=== PATIENT | male | born 1950 | race Caucasian/White ===

== ENCOUNTER → 2017-10-31 | Outpatient (CLI) | payer MEDICARE, OTHER ==
[~2017-10-31] MED LIST: HYDR2TAB58; LOSA50TA6 OR; OXYC15TA48; ZOLP10TA
== END | disposition home or self-care (01) ==
LOC: Rad HDHVI 15:00
PROVIDERS: ATTEND Internal Medicine Cardiovascular Disease
DX: I51.7 Cardiomegaly (principal)
CPT/HCPCS: 93306

== ENCOUNTER → 2017-11-19 | Outpatient (CLI) | payer MEDICARE, OTHER ==
[~2017-11-19] VITALS: Ht 193 cm; Wt 104.3 kg
== END | disposition home or self-care (01) ==
LOC: Rad HDHVI 09:30
PROVIDERS: ATTEND Internal Medicine Cardiovascular Disease
DX: I49.5 Sick sinus syndrome (principal); I51.7 Cardiomegaly; I12.9 Hypertensive chronic kidney disease with stage 1 through stage 4 chronic kidney disease, or unspecified chronic kidney disease; N18.3 Chronic kidney disease, stage 3 (moderate)
CPT/HCPCS: 78452; 93017; 96374; A9500

== ENCOUNTER 2018-02-11 15:09 | Inpatient (IN) | payer MEDICARE, OTHER ==
[~2018-02-11] VITALS: Ht 198.1 cm; Wt 111.9 kg
[~2018-02-11 15:09] MED LIST changes: -LOSA50TA6 OR; +LOSA50TA6 PO
[2018-02-11 15:54] LABS: Basophils # (auto) 0.1 uL; Basophils % (auto) 0.9 % (0.0-2.0); Eosinophils # (auto) 0.5 uL; Eosinophils % (auto) 7.3 % (0.0-7.0); Hematocrit 45.7 % (41.0-53.0); Hemoglobin 15.3 g/dL (13.5-17.5); Lymphocytes # (auto) 1.7 uL; Lymphocytes % (auto) 24.3 % (10.0-50.0); Mean Corpuscular Hemoglobin 29.2 pg (28.0-32.0); Mean Corpuscular Hgb Conc. 33.4 g/dL (32.0-36.0); Mean Corpuscular Volume 87.6 fL (80.0-100.0); Monocytes # (auto) 0.7 uL; Monocytes % (auto) 9.9 % (0.0-12.0); Neutrophils # (auto) 4.1 uL; Neutrophils % (auto) 57.6 % (37.0-80.0); Nucleated Red Blood Cells % 0.1 %; Platelet Count (auto) 175 10^3/uL (140-450); Red Blood Cells 5.22 10^6/uL (4.5-5.90); Red Cell Distribution Width 15.2 % (11.8-14.3); White Blood Cell 7.1 10^3/uL (4.4-10.8)
[2018-02-11 16:10] LABS: INR 1.04 (0.9-1.15); Partial Thromboplastin Time 27.2 sec (23.78-33.04); Prothrombin Time 11.1 sec (9.27-12.13)
[2018-02-11 16:14] LABS: BUN/Creatinine Ratio 15.3; Bilirubin, Total 0.6 mg/dL (0.2-1.0); Potassium 3.8 mmol/L (3.5-5.1); Total Protein 7.3 g/dL (6.4-8.2)
[2018-02-11] MEDS ORDERED: ZOLPIDEM TARTRATE 5 MG TAB PO PRN (22:30)
[2018-02-11] MEDS ORDERED: ONDANSETRON HCL 4 MG/2 ML VIAL IV PRN (22:30)
[2018-02-11] MEDS ORDERED: ACETAMINOPHEN 500 MG TAB PO PRN (22:30)
[2018-02-12 01:36] VITALS: BP 121/74
[2018-02-12] MEDS ORDERED: ATOR10TA PO (02:11)
[2018-02-12] MEDS ORDERED: MELA3TAB42 OR (02:11)
[2018-02-12] MEDS ORDERED: OMEG1CAP31 PO (02:11)
[2018-02-12] MEDS ORDERED: PANT40TA2 PO (02:11)
[2018-02-12] MEDS ORDERED: AMLO5TAB2 PO (02:11)
[2018-02-12] MEDS ORDERED: MULT-228 PO (02:11)
[2018-02-12 04:52] VITALS: BP_SYST 103; BP_SYST 108; BP_DIAS 58; BP_DIAS 63
[2018-02-12 06:43] LABS: Basophils # (auto) 0 uL; Basophils % (auto) 0.7 % (0.0-2.0); Eosinophils # (auto) 0.5 uL; Eosinophils % (auto) 7.4 % (0.0-7.0); Hematocrit 43.1 % (41.0-53.0); Hemoglobin 14.5 g/dL (13.5-17.5); Lymphocytes # (auto) 2.1 uL; Lymphocytes % (auto) 30.5 % (10.0-50.0); Mean Corpuscular Hemoglobin 29.1 pg (28.0-32.0); Mean Corpuscular Hgb Conc. 33.5 g/dL (32.0-36.0); Mean Corpuscular Volume 86.7 fL (80.0-100.0); Monocytes # (auto) 0.7 uL; Monocytes % (auto) 9.7 % (0.0-12.0); Neutrophils # (auto) 3.5 uL; Neutrophils % (auto) 51.7 % (37.0-80.0); Nucleated Red Blood Cells % 0.1 %; Platelet Count (auto) 152 10^3/uL (140-450); Red Blood Cells 4.98 10^6/uL (4.5-5.90); Red Cell Distribution Width 15.2 % (11.8-14.3); White Blood Cell 6.8 10^3/uL (4.4-10.8)
[2018-02-12 07:04] LABS: Calcium 9.3 mg/dL (8.5-10.1); Potassium 4.2 mmol/L (3.5-5.1)
[2018-02-12 07:06] LABS: BUN/Creatinine Ratio 16.1
[2018-02-12 07:06] LABS: Urine Bacteria NONE SEEN /hpf (None Seen); Urine Blood Negative /uL (Negative); Urine Mucus FEW (None Seen); Urine Specific Gravity 1.017 (1.001-1.035); Urine WBC 1 /hpf (0 - 3)
[2018-02-12 09:00] VITALS: BP 121/71
[2018-02-12 12:09] VITALS: BP 117/57
[2018-02-12 17:22] VITALS: BP 120/73
[2018-02-12] MEDS ORDERED: ceFAZolin 1GM/100ML 50 ML IV ONE (17:44)
[2018-02-12] MEDS ORDERED: fentaNYL CITRATE 100 MCG/2 ML VL ONE ×2 (17:48→19:14)
[2018-02-12] MEDS ORDERED: MIDAZOLAM HCL 1MG/1ML-2 ML VIAL ONE (17:49)
[2018-02-12] MEDS ORDERED: PROPOFOL 10 MG/ML 20 ML IV ONE (17:53)
[2018-02-12] MEDS ORDERED: fentaNYL CITRATE 100 MCG/2 ML VL IV ONE (19:40)
[2018-02-12] MEDS ORDERED: ePHEDrine SULFATE 50 MG/ML AMP IV PRN (19:45)
[2018-02-12] MEDS ORDERED: ONDANSETRON HCL 4 MG/2 ML VIAL IV ONE (19:45)
[2018-02-12] MEDS ORDERED: hydrALAZINE HCL 20 MG/ML VL IV PRN (19:45)
[2018-02-12] MEDS ORDERED: KETOROLAC TROMETH 30 MG/ML 1ML VIAL ONE (19:52)
[2018-02-12] MEDS: fentaNYL CITRATE 100 MCG/2 ML VL IV PRN ×4 (19:55→20:25)
[2018-02-12] MEDS ORDERED: KETOROLAC TROMETH 30 MG/ML 1ML VIAL IV PRN (20:00)
[2018-02-12 22:00] VITALS: BP 120/74
[2018-02-13] MEDS: ceFAZolin 1GM/100ML 50 ML IV SCH ×4 (00:33→18:13)
[2018-02-13] MEDS: HYDROcodone-ACET 5/325MG TAB PO PRN ×2 (00:33→18:19)
[2018-02-13 05:00] VITALS: BP 117/64
[2018-02-13 05:41] LABS: Basophils # (auto) 0 uL; Basophils % (auto) 0.5 % (0.0-2.0); Eosinophils # (auto) 0.2 uL; Eosinophils % (auto) 2.4 % (0.0-7.0); Hemoglobin 13.9 g/dL (13.5-17.5); Lymphocytes # (auto) 1.7 uL; Lymphocytes % (auto) 18.4 % (10.0-50.0); Mean Corpuscular Hemoglobin 29.4 pg (28.0-32.0); Mean Corpuscular Hgb Conc. 33.1 g/dL (32.0-36.0); Mean Corpuscular Volume 88.8 fL (80.0-100.0); Monocytes # (auto) 0.8 uL; Monocytes % (auto) 9.1 % (0.0-12.0); Neutrophils # (auto) 6.4 uL; Neutrophils % (auto) 69.6 % (37.0-80.0); Nucleated Red Blood Cells % 0.1 %; Platelet Count (auto) 163 10^3/uL (140-450); Red Blood Cells 4.72 10^6/uL (4.5-5.90); Red Cell Distribution Width 15.5 % (11.8-14.3); White Blood Cell 9.1 10^3/uL (4.4-10.8)
[2018-02-13 05:58] LABS: BUN/Creatinine Ratio 16.2; Calcium 8.3 mg/dL (8.5-10.1); Potassium 4.7 mmol/L (3.5-5.1)
[2018-02-13 08:00] VITALS: BP 124/72
[2018-02-13 12:00] VITALS: BP 101/58
[2018-02-13 15:00] VITALS: BP 116/64
[2018-02-13 22:00] VITALS: BP_SYST 118; BP_SYST 134; BP_DIAS 73; BP_DIAS 76
[2018-02-14] MEDS: ceFAZolin 1GM/100ML 50 ML IV SCH ×3 (00:08→12:18)
[2018-02-14] MEDS: HYDROcodone-ACET 5/325MG TAB PO PRN ×2 (00:08→15:04)
[2018-02-14 05:06] VITALS: BP 105/72
[2018-02-14 06:44] LABS: Basophils # (auto) 0 uL; Basophils % (auto) 0.7 % (0.0-2.0); Eosinophils # (auto) 0.4 uL; Eosinophils % (auto) 5.3 % (0.0-7.0); Hematocrit 40.1 % (41.0-53.0); Hemoglobin 13.4 g/dL (13.5-17.5); Lymphocytes # (auto) 1.8 uL; Lymphocytes % (auto) 24.7 % (10.0-50.0); Mean Corpuscular Hemoglobin 29.2 pg (28.0-32.0); Mean Corpuscular Hgb Conc. 33.4 g/dL (32.0-36.0); Mean Corpuscular Volume 87.3 fL (80.0-100.0); Monocytes % (auto) 13.6 % (0.0-12.0); Neutrophils % (auto) 55.7 % (37.0-80.0); Nucleated Red Blood Cells % 0.1 %; Platelet Count (auto) 144 10^3/uL (140-450); Red Cell Distribution Width 15.4 % (11.8-14.3); White Blood Cell 7.2 10^3/uL (4.4-10.8)
[2018-02-14 06:55] LABS: Potassium 4.1 mmol/L (3.5-5.1)
[2018-02-14 07:10] LABS: BUN/Creatinine Ratio 14.8
[2018-02-14 09:00] VITALS: BP 109/69
[2018-02-14 12:55] VITALS: BP 136/79
[2018-02-14 17:00] VITALS: BP 134/78
[2018-02-14] MEDS: ERTAPENEM SOD INJ 1 GM in SODIUM CHL 0.9% 50 ML IV SCH ×2 (18:05→18:06)
[2018-02-14 22:00] VITALS: BP 130/77
[2018-02-15 05:30] VITALS: BP 118/74
[2018-02-15 06:37] LABS: Basophils # (auto) 0.1 uL; Basophils % (auto) 0.7 % (0.0-2.0); Eosinophils # (auto) 0.4 uL; Eosinophils % (auto) 5.5 % (0.0-7.0); Lymphocytes # (auto) 1.6 uL; Lymphocytes % (auto) 23.1 % (10.0-50.0); Mean Corpuscular Hemoglobin 29.8 pg (28.0-32.0); Mean Corpuscular Hgb Conc. 34.3 g/dL (32.0-36.0); Mean Corpuscular Volume 86.9 fL (80.0-100.0); Monocytes # (auto) 0.8 uL; Monocytes % (auto) 11.8 % (0.0-12.0); Neutrophils % (auto) 58.9 % (37.0-80.0); Nucleated Red Blood Cells % 0.1 %; Platelet Count (auto) 139 10^3/uL (140-450); Red Blood Cells 4.71 10^6/uL (4.5-5.90); White Blood Cell 6.9 10^3/uL (4.4-10.8)
[2018-02-15 06:54] LABS: BUN/Creatinine Ratio 11.5; Calcium 8.1 mg/dL (8.5-10.1); Potassium 4.4 mmol/L (3.5-5.1)
[2018-02-15] MEDS ORDERED: DOCUSATE SOD 100 MG CAP PO SCH (10:00)
[2018-02-15 10:05] VITALS: BP 121/77
[2018-02-15] MEDS ORDERED: LIDOCAINE 1% (LOCAL ANESTH.) PF 5ml SDV ID ONE (11:30)
[2018-02-15 16:48] VITALS: BP 134/86
[2018-02-15] MEDS: ERTAPENEM SOD INJ 1 GM in SODIUM CHL 0.9% 50 ML IV SCH (17:30)
[2018-02-15 17:36] VITALS: BP 138/86
[2018-02-15] MEDS ORDERED: SODIUM CHLOR 0.9% PF (SALINE LOCK) 10ML VIAL/SYR IV SCH (22:00)
== END 2018-02-15 20:00 | disposition home health service (06) | DRG 464 ==
LOC: ER 15:09 → OVERFLOW 15:10 → EAST 23:43
PROVIDERS: ADMIT Nurse Practitioner Family; ATTEND Internal Medicine
PROC: 0JBM0ZZ Excision of Left Upper Leg Subcutaneous Tissue and Fascia, Open Approach (ICD-10-PCS; principal; 2018-02-12 17:47)
PROC: 02HV33Z Insertion of Infusion Device into Superior Vena Cava, Percutaneous Approach (ICD-10-PCS; 2018-02-15)
DX: T87.44 Infection of amputation stump, left lower extremity (principal); L02.416 Cutaneous abscess of left lower limb; M86.8X6 Other osteomyelitis, lower leg; I10 Essential (primary) hypertension; G89.29 Other chronic pain; K21.9 Gastro-esophageal reflux disease without esophagitis; M19.90 Unspecified osteoarthritis, unspecified site; B96.20 Unspecified Escherichia coli [E. coli] as the cause of diseases classified elsewhere; Z16.12 Extended spectrum beta lactamase (ESBL) resistance; M54.9 Dorsalgia, unspecified; Y83.8 Other surgical procedures as the cause of abnormal reaction of the patient, or of later complication, without mention of misadventure at the time of the procedure; Z89.511 Acquired absence of right leg below knee; Z89.512 Acquired absence of left leg below knee
CPT/HCPCS: 36415; 36569; 71045; 73700; 80048; 80053; 81001; 85025; 85610; 85730; 86850; 86900; 86901; 87040; 87070; 87075; 87077; 87186; 87205; 96365; 96375; J0690; J1335; J1885; J2250; J2405; J2704

== ENCOUNTER → 2018-09-27 | Day surgery (SDC) | payer MEDICARE, OTHER ==
[2018-09-24 12:09] LABS: Basophils # (auto) 0.1 uL; Basophils % (auto) 0.9 % (0.0-2.0); Eosinophils # (auto) 0.5 uL; Eosinophils % (auto) 8.4 % (0.0-7.0); Hematocrit 45.8 % (41.0-53.0); Hemoglobin 15.9 g/dL (13.5-17.5); Lymphocytes # (auto) 1.5 uL; Lymphocytes % (auto) 24.7 % (10.0-50.0); Mean Corpuscular Hemoglobin 30.3 pg (28.0-32.0); Mean Corpuscular Hgb Conc. 34.8 g/dL (32.0-36.0); Mean Corpuscular Volume 87.1 fL (80.0-100.0); Monocytes # (auto) 0.6 uL; Monocytes % (auto) 9.7 % (0.0-12.0); Neutrophils # (auto) 3.4 uL; Neutrophils % (auto) 56.3 % (37.0-80.0); Nucleated Red Blood Cells % 0.1 %; Platelet Count (auto) 169 10^3/uL (140-450); Red Blood Cells 5.26 10^6/uL (4.5-5.90); Red Cell Distribution Width 14.3 % (11.8-14.3)
[2018-09-24 12:16] LABS: Urine Bacteria NONE SEEN /hpf (None Seen); Urine Blood Negative /uL (Negative); Urine Mucus FEW (None Seen); Urine Specific Gravity 1.018 (1.001-1.035); Urine WBC 1 /hpf (0 - 3)
[2018-09-24 12:25] LABS: INR 1.03 (0.9-1.15); Partial Thromboplastin Time 28.2 sec (23.78-33.04)
[2018-09-24 12:32] LABS: Albumin 4.2 g/dL (3.4-5.0); Anion Gap 4 (5-15); Blood Urea Nitrogen 21 mg/dL (7-18); Calcium 9.3 mg/dL (8.5-10.1); Carbon Dioxide 28 mmol/L (21-32); Chloride 108 mmol/L (98-107); Glucose 111 mg/dL (74-106); Potassium 4.5 mmol/L (3.5-5.1); Sodium 140 mmol/L (136-145)
[2018-09-24 12:36] LABS: Alanine Aminotransferase 31 U/L (16-61); Alkaline Phosphatase 89 U/L (45-117); Aspartate Aminotransferase 23 U/L (15-37); BUN/Creatinine Ratio 15.1; Bilirubin, Total 0.8 mg/dL (0.2-1.0); GFR Non-African American 54 mL/min; Total Protein 7.3 g/dL (6.4-8.2)
[2018-09-24 12:58] LABS: GFR African American > 60 mL/min
[~2018-09-27] VITALS: Ht 193 cm; Wt 104.3 kg
[~2018-09-27] MED LIST changes: +AMLO5TAB13 PO; +ATOR10TA PO; +DEXAMETHASONE SOD PHOS 10MG/1ML VIAL INJ ONE; +HYDR-531 PO; -HYDR2TAB58; +HYDROmorphone HCL 2 MG/ML VL IV PRN; +IBUP200T76 PO; +KETOROLAC TROMETH 30 MG/ML 1ML VIAL IV ONE; +KETOROLAC TROMETH 30 MG/ML 1ML VIAL ONE; +LABETALOL HCL 5 MG/ML 4ML SYRINGE IV PRN; +LIDOCAINE W/ EPINEPHRINE 2% INJ 20ML VIAL ONE; +LOSA-46 PO; -LOSA50TA6 PO; +MAGN400T5 PO; +MEPERIDINE HCL (50 MG/ML) 1 ML VIAL ONE; +MIDAZOLAM HCL 1MG/1ML-2 ML VIAL IV PRN; +MIDAZOLAM HCL 1MG/1ML-2 ML VIAL ONE; +MORPHINE SULFATE 4 MG/ML SYR/VIAL IV ONE; +MULT-228 PO; +OMEG1CAP31 PO; +ONDANSETRON HCL 4 MG/2 ML VIAL IV ONE; +ONDANSETRON HCL 4 MG/2 ML VIAL ONE; -OXYC15TA48; +PANT40TA2 PO; +PROPOFOL 10 MG/ML 20 ML IV ONE; +ROPIVACAINE 0.5% (5MG/ML) 20ML AMPULE IJ ONE; -ZOLP10TA; +ceFAZolin 1GM/50ML 50 ML IV ONE; +ePHEDrine SULFATE 50 MG/ML AMP IV PRN; +fentaNYL CITRATE 100 MCG/2 ML VL ONE; +fentaNYL CITRATE 5 ML ONE
[2018-09-27 14:15] VITALS: BP 114/77
== END | disposition home or self-care (01) ==
LOC: SUR 08:17
PROVIDERS: ATTEND Orthopaedic Surgery
DX: S46.011A Strain of muscle(s) and tendon(s) of the rotator cuff of right shoulder, initial encounter (principal); M75.21 Bicipital tendinitis, right shoulder; M75.41 Impingement syndrome of right shoulder; M13.811 Other specified arthritis, right shoulder; I49.8 Other specified cardiac arrhythmias; K21.9 Gastro-esophageal reflux disease without esophagitis; I12.9 Hypertensive chronic kidney disease with stage 1 through stage 4 chronic kidney disease, or unspecified chronic kidney disease; N18.2 Chronic kidney disease, stage 2 (mild); Z79.899 Other long term (current) drug therapy; Z89.519 Acquired absence of unspecified leg below knee; Z98.890 Other specified postprocedural states; X58.XXXA Exposure to other specified factors, initial encounter; Y93.89 Activity, other specified; Y92.89 Other specified places as the place of occurrence of the external cause; Y99.8 Other external cause status
CPT/HCPCS: 23180; 23412; 23415; 36415; 80053; 81001; 85025; 85610; 85730; J0690; J1100; J1885; J2175; J2250; J2405; J2704; J2795; J3010

== ENCOUNTER 2019-05-03 14:08 | Emergency (ER) | payer MEDICARE, OTHER ==
[~2019-05-03] VITALS: Ht 193 cm; Wt 104.3 kg
[~2019-05-03 14:08] MED LIST changes: -AMLO5TAB13 PO; +AMLO5TAB15 PO; -DEXAMETHASONE SOD PHOS 10MG/1ML VIAL INJ ONE; -HYDROmorphone HCL 2 MG/ML VL IV PRN; -KETOROLAC TROMETH 30 MG/ML 1ML VIAL IV ONE; -KETOROLAC TROMETH 30 MG/ML 1ML VIAL ONE; -LABETALOL HCL 5 MG/ML 4ML SYRINGE IV PRN; -LIDOCAINE W/ EPINEPHRINE 2% INJ 20ML VIAL ONE; -LOSA-46 PO; +LOSA-69 PO; -MEPERIDINE HCL (50 MG/ML) 1 ML VIAL ONE; -MIDAZOLAM HCL 1MG/1ML-2 ML VIAL IV PRN; -MIDAZOLAM HCL 1MG/1ML-2 ML VIAL ONE; -MORPHINE SULFATE 4 MG/ML SYR/VIAL IV ONE; -ONDANSETRON HCL 4 MG/2 ML VIAL IV ONE; -ONDANSETRON HCL 4 MG/2 ML VIAL ONE; -PROPOFOL 10 MG/ML 20 ML IV ONE; -ROPIVACAINE 0.5% (5MG/ML) 20ML AMPULE IJ ONE; -ceFAZolin 1GM/50ML 50 ML IV ONE; -ePHEDrine SULFATE 50 MG/ML AMP IV PRN; -fentaNYL CITRATE 100 MCG/2 ML VL ONE; -fentaNYL CITRATE 5 ML ONE
[2019-05-03 16:20] LABS: Basophils # (auto) 0.1 uL; Basophils % (auto) 0.7 % (0.0-2.0); Eosinophils # (auto) 0.2 uL; Hematocrit 49.4 % (41.0-53.0); Hemoglobin 16.9 g/dL (13.5-17.5); Lymphocytes # (auto) 1.5 uL; Lymphocytes % (auto) 9.2 % (10.0-50.0); Mean Corpuscular Hemoglobin 30.3 pg (28.0-32.0); Mean Corpuscular Hgb Conc. 34.3 g/dL (32.0-36.0); Mean Corpuscular Volume 88.3 fL (80.0-100.0); Monocytes # (auto) 0.7 uL; Monocytes % (auto) 4.4 % (0.0-12.0); Neutrophils # (auto) 13.4 uL; Neutrophils % (auto) 84.7 % (37.0-80.0); Nucleated Red Blood Cells % 0.1 %; Platelet Count (auto) 179 10^3/uL (140-450); Red Blood Cells 5.59 10^6/uL (4.5-5.90); Red Cell Distribution Width 14.8 % (11.8-14.3); White Blood Cell 15.9 10^3/uL (4.4-10.8)
[2019-05-03] MEDS ORDERED: HYDROmorphone HCL 2 MG/ML VL IV ONE (16:30)
[2019-05-03] MEDS ORDERED: PROMETHAZINE HCL 25 MG/ML 1ML IV ONE (16:30)
[2019-05-03] MEDS ORDERED: SODIUM CHLORIDE 0.9% 1,000 ML IVB ONE (16:36)
[2019-05-03 17:41] LABS: Alanine Aminotransferase 29 U/L (16-61); Albumin 4.4 g/dL (3.4-5.0); Anion Gap 13 (5-15); Aspartate Aminotransferase 23 U/L (15-37); Blood Urea Nitrogen 23 mg/dL (7-18); Calcium 9.4 mg/dL (8.5-10.1); Carbon Dioxide 17 mmol/L (21-32); Chloride 113 mmol/L (98-107); Glucose 118 mg/dL (74-106); Magnesium 2.5 mg/dL (1.6-2.6); Sodium 143 mmol/L (136-145)
[2019-05-03 17:44] LABS: Alkaline Phosphatase 98 U/L (45-117); BUN/Creatinine Ratio 14.2; Bilirubin, Total 1.3 mg/dL (0.2-1.0); GFR African American 55 mL/min; GFR Non-African American 45 mL/min; Total Protein 7.7 g/dL (6.4-8.2)
[2019-05-03] MEDS ORDERED: FLEET MINERAL OIL ENEMA 133 ML PR ONE (17:45)
[2019-05-03] MEDS ORDERED: LACTULOSE 20Gm/30ML SOLN PO ONE (18:00)
[2019-05-03] MEDS ORDERED: SODIUM CHLORIDE 0.9% 1,000 ML IV ONE (20:45)
[2019-05-03] MEDS ORDERED: ONDANSETRON HCL 4 MG/2 ML VIAL IV ONE (20:45)
[2019-05-03] MEDS ORDERED: MORPHINE SULFATE 4 MG/ML SYR/VIAL IV ONE (20:45)
[2019-05-03 22:29] LABS: Urine Bacteria NONE SEEN /hpf (None Seen); Urine Blood Negative /uL (Negative); Urine Hyaline Cast FEW /lpf (0 - 2); Urine Specific Gravity 1.028 (1.001-1.035); Urine WBC 2 /hpf (0 - 3)
[2019-05-04] MEDS ORDERED: SODIUM CHLORIDE 0.9% 1,000 ML IV ONE (01:45)
[2019-05-04] MEDS ORDERED: MAGNESIUM CITRATE SOLUTION 300 ML BTL PO ONE (01:45)
[2019-05-04] MEDS ORDERED: MORPHINE SULFATE 4 MG/ML SYR/VIAL IV ONE (01:45)
[2019-05-04 09:40] VITALS: BP 130/76
[2019-05-04 09:42] LABS: Urine Bacteria FEW /hpf (None Seen); Urine Blood 1+ /uL (Negative); Urine WBC 223 /hpf (0 - 3); Urine WBC Clumps PRESENT /hpf (None Seen)
== END 2019-05-04 10:12 | disposition home or self-care (01) ==
LOC: ER 14:08 → EDBD 14:08 → ER 05-04 10:12
DX: K80.20 Calculus of gallbladder without cholecystitis without obstruction (principal); K62.4 Stenosis of anus and rectum; I12.9 Hypertensive chronic kidney disease with stage 1 through stage 4 chronic kidney disease, or unspecified chronic kidney disease; N18.9 Chronic kidney disease, unspecified; K21.9 Gastro-esophageal reflux disease without esophagitis; E78.5 Hyperlipidemia, unspecified; Z79.899 Other long term (current) drug therapy
CPT/HCPCS: 36415; 51702; 74022; 74176; 80053; 80320; 81001; 83605; 83690; 83735; 83880; 84484; 85025; 87040; 96374; 96375; 96376; 99284; J1170; J2270; J2405; J2550; J7030